=== PATIENT | female | born 1985 ===

== ENCOUNTER 2017-05-19 15:25 | Inpatient (IN) | payer MEDICAID, OTHER ==
[2017-05-19] MEDS ORDERED: Sodium Citrate/Citric Acid 15 ml Sol PO ONE ×2 (15:53→16:15)
[2017-05-19] MEDS ORDERED: cefOXitin IV 2 gm in Dextrose 2 GM/50 ML BAG IVPB ONE (15:53)
[2017-05-19] MEDS: Lactated Ringer's 1,000 ML IV SCH ×2 (16:05→17:05)
[2017-05-19 16:37] LABS: BASO % 0.5 % (0.0-2.0); EOS # 0.1 K/uL (0.0-0.7); EOS % 0.8 % (0.0-4.0); HEMATOCRIT 35.9 % (34.0-47.0); LYMPH # 1.4 K/uL (1.0-4.3); MEAN CELL VOLUME 82.8 fL (81.0-99.0); MEAN CORPUSCULAR HEMOGLOBIN 28.1 pg (27.0-31.0); MEAN CORPUSCULAR HGB CONC 33.9 g/dL (33.0-37.0); MEAN PLATELET VOLUME 10.8 fL (7.2-11.7); MONO # 0.6 K/uL (0.0-0.8); MONO % 8.3 % (0.0-10.0); NRBC % 0.1 % (0.0-2.0); RED CELL DISTRIBUTION WIDTH 14.6 % (11.5-14.5); WHITE BLOOD COUNT 7.4 K/uL (4.8-10.8)
[2017-05-19 16:39] LABS: RBC URINE < 1 /hpf (0-3); URINE BILIRUBIN NEGATIVE (NEGATIVE); URINE BLOOD NEGATIVE (NEGATIVE); URINE COLOR Straw (YELLOW); URINE GLUCOSE (UA) NORMAL (Normal); URINE KETONE NEGATIVE (NEGATIVE); URINE LEUKOCYTE ESTERASE NEG Leu/uL (Negative); URINE PROTEIN NEGATIVE (NEGATIVE); URINE UROBILINOGEN NORMAL mg/dL (0.2-1.0); WBC URINE < 1 /hpf (0-5)
[2017-05-19 16:44] LABS: CHLORIDE 105 mmol/L (98-107)
[2017-05-19 16:45] LABS: POTASSIUM 3.8 mmol/L (3.6-5.2); SODIUM 136 mmol/L (132-148)
[2017-05-19 16:48] LABS: ALB/GLOB RATIO 1.1 (1.0-2.1); ALKALINE PHOSPHATASE 143 U/L (38-126); ALT/SGPT 24 U/L (9-52); AST/SGOT 18 U/L (14-36); BILIRUBIN,TOTAL 0.4 mg/dL (0.2-1.3); BLOOD UREA NITROGEN 7 mg/dL (7-17); CARBON DIOXIDE 23 mmol/L (22-30); GFR AFRICAN-AMERICAN > 60; GLUCOSE,RANDOM 75 mg/dL (65-105); TOTAL PROTEIN 6.8 g/dL (6.3-8.3)
[2017-05-19 16:49] LABS: CALCIUM 9.2 mg/dl (8.6-10.4)
[2017-05-19] MEDS ORDERED: methylPREDNISolone 60 MG in Sodium Chloride 0.9% 100 ML IVPB ONE (17:06)
--- NOTE | 2017-05-19 17:09 | OBHP ---
Datetime: 05/19/2017 16:15 IP Adm Impression: Term, intrauterine ; No Active Labor IP Chief Complaint Other: thrombocyotpenia/ previous sec IP Admit Plan: Admit to unit; Initiate Section protocol Admit Comment, IP Provider: CC: Oligohydramnios send by [facility] for repeat c/s HPI: Patient is a 32 years old at [id number] by LMP and 38w 2days by ultrasound (05/19/17). E DD by LMP (07/30/2016) is 05/06/2017 and COREY by first trimester is 05/31/2017. Patient presents to the L_D from the clinic due to oligohydramnios ( EDUARDO: 5.1cm) observed on ultrasound for a repeat C-sectio n. Patient endorses + movement but denies contraction, vaginal bleeding, leakage of fluids. 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 Pmhx: denies Pshx: X2 FHx: denies Medications: PNV Allergies: NKDA Social Hx: Lives with boyfriend and two daughters. 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 Denies tobacco, E DEVON and illicit drugs use P.E: See above A/P: 32 yo at 38w2d by ultrasound presented for a repeat due to oligohydramnios ( A FI: 5.1cm) approved by [facility] Dr Mandel 1. Admission to L _ D for repeat and btl with oligohyraminos/thromboctoenia. Local Company Hazmat Driver called Dr Palathingal.ptl 75. orederd funcal count. order 60 mg solumedrol and 1 unit platelets before c/s. belt knife feeder will come. npo/ivf labs type and cross cont carissa and efm Dr Mandel called and left a voicemail. possible section in am Pelvic Type - PN: Adequate Extremities - PN: Normal Abdomen - PN: Normal Back - PN: Normal Breast - PN: Not Done Lungs - PN: Normal Heart - PN: Normal Thyroid - PN: Not Done Neurologic - PN: Normal HEENT - PN: Normal General - PN: Normal FHR - Baseline A Provider: 130 Contraction Comments Provider: occ Comments, ACOG Physical Exam: Gen: NAD, AAOX3 Cardio: RRR, normal S1, S2 Lung: CTA bilaterally Abdomen: Gravid, fundal height at 41cm Extremties: No edema, no cyanosis or clubbing IP Hx Assessment: The History has been Reviewed and is Current Vital Signs Provider: Reviewed; Within Normal Limits IP Indication for Induction: Oligohydramnios NICHD Variability Prov Fetus A: Moderate 6-25bpm NICHD Accel Fetus A IP Provider: 15X15 FHR Category Provider Fetus A: Category I Genitourinary Exam: Normal DTRs - PN: Normal
--- NOTE | 2017-05-19 17:49 | CP.PCM.CON ---
History of Present Illness - History of Present Illness History of Present Illness: 32 yo woman with third child, currently admitted for her third elective . The patient has two prior pregnancies, uncomplicated C-sections. She was found to be mildly thrombocytopenic, during her second trimester, with a platelet count of around 100k. She was seen in the office in April with a platelet count of 80K. She did not notice any unusual bleeding or excessive bruising. Work up done so far show a normal B12, Negative MEETA, Hepatitis and HIV tests are normal. Testing for VonWillebrand profile is also normal with normal coagulation tests. Meds Allergies/Adverse Reactions: Allergies Allergy/AdvReac Type Severity Reaction Status Date / Time No Known Allergies Allergy Verified 05/19/17 15:53 - Medications Medications: Current Medications Lactated Ringer's (Lactated Ringer's) 1,000 mls @ 1,000 mls/hr IV .Q1H SHIRA Stop: 05/19/17 17:59 Results - Labs Result Diagrams: 05/19/17 16:28 05/19/17 16:28 Labs: Laboratory Results - last 24 hr 05/19/17 05/19/17 05/19/17 16:28 16:28 16:28 WBC 7.4 RBC 4.33 Hgb 12.2 Hct 35.9 MCV 82.8 D MCH 28.1 MCHC 33.9 RDW 14.6 H Plt Count 75 L D Manual Plt Count 78 L MPV 10.8 Neut % (Auto) 71.4 Lymph % (Auto) 19.0 L [place] % (Auto) 8.3 Eos % (Auto) 0.8 Baso % (Auto) 0.5 Neut # 5.3 Lymph # 1.4 [place]lands # 0.6 Eos # 0.1 Baso # 0.0 PT INR APTT Sodium Potassium Chloride Carbon Dioxide Anion Gap BUN Creatinine Est GFR ( Amer) Est GFR (Non-Af Amer) Random Glucose Calcium Total Bilirubin AST ALT Alkaline Phosphatase Total Protein Albumin Globulin Albumin/Globulin Ratio Urine Color Straw Urine Clarity Clear Urine pH 6.0 Ur Specific [place] 1.003 Urine Protein Negative Urine Glucose (UA) Normal Urine Ketones Negative Urine Blood Negative Urine Nitrate Negative Urine Bilirubin Negative Urine Urobilinogen Normal Ur Leukocyte Esterase Neg Urine WBC (Auto) < 1 Urine RBC (Auto) < 1 Ur Squamous Epith Cells 2 RPR HIV 1&2 Antibody Screen 05/19/17 05/19/17 05/19/17 16:28 16:28 16:28 WBC RBC Hgb Hct MCV MCH MCHC RDW Plt Count Manual Plt Count MPV Neut % (Auto) Lymph % (Auto) [place] % (Auto) Eos % (Auto) Baso % (Auto) Neut # Lymph # [place] # Eos # Baso # PT 10.8 INR 1.0 APTT 31 Sodium 136 Potassium 3.8 Chloride 105 Carbon Dioxide 23 Anion Gap 12 BUN 7 Creatinine 0.4 L Est GFR ( Amer) > 60 Est GFR (Non-Af Amer) > 60 Random Glucose 75 Calcium 9.2 Total Bilirubin 0.4 AST 18 ALT 24 Alkaline Phosphatase 143 H Total Protein 6.8 Albumin 3.6 Globulin 3.2 Albumin/Globulin Ratio 1.1 Urine Color Urine Clarity Urine pH Ur Specific Mary [place] Urine Protein Urine Glucose (UA) Urine Ketones Urine Blood Urine Nitrate Urine Bilirubin Urine Urobilinogen Ur Leukocyte Esterase Urine WBC (Auto) Urine RBC (Auto) Ur Squamous Epith Cells RPR Nonreactive HIV 1&2 Antibody Screen 05/19/17 16:28 WBC RBC Hgb Hct MCV MCH MCHC RDW Plt Count Manual Plt Count MPV Neut % (Auto) Lymph % (Auto) [place] % (Auto) Eos % (Auto) Baso % (Auto) Neut # Lymph # [place] # Eos # Baso # PT INR APTT Sodium Potassium Chloride Carbon Dioxide Anion Gap BUN Creatinine Est GFR ( Amer) Est GFR (Non-Af Amer) Random Glucose Calcium Total Bilirubin AST ALT Alkaline Phosphatase Total Protein Albumin Globulin Albumin/Globulin Ratio Urine Color Urine Clarity Urine pH Ur Specific [place] Urine Protein Urine Glucose (UA) Urine Ketones Urine Blood Urine Nitrate Urine Bilirubin Urine Urobilinogen Ur Leukocyte Esterase Urine WBC (Auto) Urine RBC (Auto) Ur Squamous Epith Cells RPR HIV 1&2 Antibody Screen Negative Assessment & Plan (1) Thrombocytopenia affecting Assessment and Plan: Mild thrombocytopenia, work up so far normal/ negative for bleeding disorder, nutritional or autoimmune disease, negative for HIV and hepatitis, normal LFTs and BP. Above most likely secondary to gestational decrease versus chronic ITP like picture, less likely. Because this is patient's third , and because of anticipated adhesions , there might be higher than ususual risk of bleeding. Recommend 1 unit pheresis platelets under cover of steroids prior to , transfuse early AM tomorrow. Status: Acute
--- NOTE | 2017-05-19 18:32 | OBPN ---
Datetime: 05/19/2017 18:27 Contraction Comments Provider: irrg FHR - Baseline A Provider: 140 IP Progress Note Comment: dr wilkins hematolgy came to see the pateint. recommed platlet transusio n and solumedrol x 1 before c/s. plt coming from [place]. plan liquid deit platlet transusion at 6 am . repeat cbc at 7 am npo after midnight dr malone called left a vocemail pt understand and agrees Vital Signs Provider: Reviewed; Within Normal Limits NICHD Accel Fetus A IP Provider: 15X15 FHR Category Provider Fetus A: Category I NICHD Variability Prov Fetus A: Moderate 6-25bpm Dilatation, Provider: 0 Effacement, Provider: 0 Station, Provider: -3 NICHD Decel Fetus A IP Provider: None
[2017-05-19 18:40] LABS: PLT BASE COUNT 71 K/uL
[2017-05-19 18:41] LABS: FUNCTIONING PLTS 65 K/uL; PLT(ADP) 6 K/uL
[2017-05-19] MEDS ORDERED: Nalbuphine 20 mg/ml Inj (1 ml) IVP PRN (19:45)
[2017-05-19] MEDS ORDERED: Nalbuphine 20 mg/ml Inj (1 ml) ONE (19:53)
[2017-05-20 09:07] LABS: FUNCTIONING PLTS 63 K/uL; PLT BASE COUNT 78 K/uL; PLT(ADP) 15 K/uL
[2017-05-20] MEDS ORDERED: Sodium Citrate/Citric Acid 15 ml Sol ONE (10:10)
[2017-05-20] MEDS ORDERED: cefOXitin IV 2 gm in Dextrose 2 GM/50 ML BAG IVPB ONE (10:10)
[2017-05-20] MEDS ORDERED: Oxytocin 10 Units/ml Inj ONE ×2 (10:10→15:52)
--- NOTE | 2017-05-20 13:21 | OBPN ---
Datetime: 05/20/2017 09:26 IP Progress Plan: Deliver- Section Contraction Comments Provider: irregular FHR - Baseline A Provider: 145 Gestation - Est Wks by US: 39w 3d IP Progress Note Comment: Patient seen and evaluated at approximately 0914 hours: received in LDR#1, presetn. (+) AFM; denies LOF, VB: 9=0 occ lower abdominal pressure Surgical consent obtained, desire for permanent sterilization was re-affirmed. Assessment: 32 y.o. P2, 39w 3d, previous C/S x 2, gestational thrombocytopenia, low EDUARDO of 5.1 cm 05/19/17 for elective repeat C/S and BTL. Patient has received 1 unit platelets; repeat CBC at 0830 h ours noted for manual platelet count 81K and functional assay of 62K. Patient consented for C/Sectio n after extensive discussion of potential risks and complications; and inclusive of discussion of pos siblility of extensive resuscitation in case of general anesthesia administration. Patient expressed an understanding and offers no other questions or concerns. Consents signed, dated, witness ed and placed in chart. Category 1 tracing. Patient is clinically stable. Plan: 1) house calls nurse to O.R. 2) Order another unit of platelet Vital Signs Provider: Reviewed; Within Normal Limits NICHD Accel Fetus A IP Provider: 15X15 FHR Category Provider Fetus A: Category I NICHD Variability Prov Fetus A: Moderate 6-25bpm NICHD Decel Fetus A IP Provider: None
[2017-05-20] MEDS ORDERED: ePHEDrine 50 mg/ml Inj ONE (13:35)
[2017-05-20] MEDS ORDERED: Succinylcholine Chloride 20 mg/ml Syr (5 ml) IV ONE (13:35)
[2017-05-20] MEDS ORDERED: Propofol 10 mg/ml Inj (20 ML) ONE (13:35)
[2017-05-20] MEDS ORDERED: Oxytocin 20 units in LR 2,000 ML IV ONE (13:58)
[2017-05-20] MEDS ORDERED: Morphine 4 MG/ML VIAL ONE ×2 (16:40→17:26)
[2017-05-20] MEDS ORDERED: DiphenhydrAMINE 50 mg/ml Inj IVP PRN (17:02)
--- NOTE | 2017-05-20 17:05 | PCM.SURG1 ---
Surgeon's Initial Post Op Note - Surgeon's Notes Surgeon: Meche Rodriguez MD Guide Cruise: Vinayak Villagran MD; 2nd Guide Cruise: Babak Mansfield MS-3 Type of Anesthesia: General Endo Anesthesia Administered By: Rufino Connolly MD Pre-Operative Diagnosis: 39 weeks 2 days. Previous section. Gestational thrombocytopenia. Multiparity, desiring permanent sterilization Operative Findings: Live male infant, BRIJESH position, weight 7lb 5oz, 's 9/9 ; cord pH 7.27. Normal uterus; normal fallopian tubes and ovaries, bilaterally Post-Operative Diagnosis: Same Operation Performed: Repeat transverse lower uterine segment section. Modified Erma procedure Specimen/Specimens Removed: Portions of right and left fallopian tubes Estimated Blood Loss: EBL {In ML}: 600 (U.O. 400 mL; IVFs 2,000 mL) Blood Products Given: Platlets (290 mL) Drains Used: No Drains Date of Surgery/Procedure: 05/20/17 Time of Surgery/Procedure: 17:00
[2017-05-20] MEDS ORDERED: Morphine 4 MG/ML VIAL IV ONE (17:24)
[2017-05-20] MEDS ORDERED: Morphine Monoject Barrel PCA 1mg/ml IV PRN (17:45)
[2017-05-20] MEDS ORDERED: Rocuronium 10 mg/ml (5 ml) ONE (18:10)
--- NOTE | 2017-05-20 22:58 | OBDS ---
DELIVERY PERSONNEL Delivery Doctor: Aminah Rodriguez MD Scrub Nurse: Hayley Landin OBT Button And Buckle Maker: Darlyn Rodriguez RN Anesthesiologist: MATERNAL INFORMATION Delivery Anesthesia: General Medications in Delivery: pitocin Estimated Blood Loss (ml): 800 Placenta Cultured: Yes Maternal Complications: None Provider Comments: Uncomplicated repeat LTCS with atraumatic delivery of live male infant, BRIJESH posit ion, 's 9/9 under general anesthesia. Uncomplicated bialteral tubal ligation performed without i ncident. Mother exubated; transferred to in stable condition; to nursery, also in stable c ondition LABOR SUMMARY EDC: 05/24/2017 00:00 No. Babies in Womb: 1 Attempted: No Labor Anesthesia: IV Sedation LABOR INFORMATION Reason for Induction: Not Applicable Oxytocin: N/A Group B Beta Strep: Positive (Annotations: 05/05/17) Antibiotics # of Doses: 1 Steroids Given: None Reason Steroids Not Administered: Not Applicable MEMBRANES Membranes Rupture Method: Artificial Rupture of Membranes: 05/20/2017 15:58 Length of Rupture (hrs): 0.00 Amniotic Fluid Color: Clear Amniotic Fluid Amount: Moderate Amniotic Fluid Odor: Normal STAGES OF LABOR Stage 3 hrs: 0 Stage 3 min: 1 CSECTION DELIVERY Primary Indication: Repeat Elective Other Primary Indication: low robbie CSection Urgency: Elective CSection Incidence: Repeat Labor: N/A Elective: Elective CSection Incision: Lower Uterine Transverse Sterilization Procedure: Erma Uterine Closure: Double-layer closure BABY A INFORMATION Infant Delivery Date/Time: 05/20/2017 15:58 Method of Delivery: Born in Route : No : N/A Forceps: N/A Vacuum Extraction: N/A Shoulder Dystocia : No SHOULDER DYSTOCIA BABY A Delivery Date/Time: 05/20/2017 15:58 PRESENTATION/POSITION BABY A Presentation: Cephalic Cephalic Presentation: N/A Vertex Position: Left Occipital Anterior Breech Presentation: N/A PLACENTA INFORMATION BABY A Placenta Delivery Time : 05/20/2017 15:59 Placenta Method of Delivery: Manual Removal Placenta Status: Delivered SCORES BABY A Heart Rate 1 min: >100 bpm Resp Effort 1 min: Good Cry Reflex Irritability 1 min: Cough or Sneeze or Pulls Away Muscle Tone 1 min: Active Motion Color 1 min: Body [place], Extremities Blue Resuscitation Effort 1 min: Tactile Stimulation; Oxygen SCORE 1 MIN: 9 Heart Rate 5 min: >100 bpm Resp Effort 5 min: Good Cry Reflex Irritability 5 min: Cough or Sneeze or Pulls Away Muscle Tone 5 min: Active Motion Color 5 min: Body [place], Extremities Blue Resuscitation Effort 5 min: N/A SCORE 5 MIN: 9 INFANT INFORMATION BABY A Gestational Age at Delivery: 39.2 Gestational Status: Term Infant Outcome : Liveborn Infant Condition : Stable Sex: Male IDENTIFICATION/MEDS BABY A ID Band Number: [id number] ID Band Location: Left Leg; Left Arm Sensor Applied: Yes Sensor Number: [id number] Sensor Location : Cord Clamp Vitamin K Given : Not Given Erythromycin Given: Not Given WEIGHT/LENGTH BABY A Infant Birthweight (gms): 3325 Weight (lb): 7 Infant Weight (oz): 5 Infant Length Inches: 19.00 Length cms: 48.3 CORD INFORMATION BABY A No. Cord Vessels: 3 Nuchal Cord : N/A Cord Blood Taken: Yes Suction: Mouth; Nose ASSESSMENT BABY A Infant Complications: None Physical Findings at Delivery: Within Normal Limits Respirations: Appears Normal Digital Content Coordinator/ALS Called : No Care By: Fredi Menjivar RN Transferred To: Nursery
--- NOTE | 2017-05-21 04:28 | OP ---
PROCEDURE DATE: 05/20/2017 SURGEON: Meche Rodriguez MD JUNIOR SYSTEMS ENGINEER: Vinayak Villagran MD SECOND CONSULTANT ELECTRONICS: Babak Mansfield MS-3. TYPE OF ANESTHESIA: General with endotracheal intubation. ANESTHESIOLOGIST: Rufino Connolly MD PREOPERATIVE DIAGNOSES: A 39 weeks' 2 days' gestation, previous Caesarean section with gestational thrombocytopenia; multiparity, and desiring permanent sterilization. POSTOPERATIVE DIAGNOSES: A 39 weeks' 2 days' gestation, previous Caesarean section with gestational thrombocytopenia; multiparity, and desiring permanent sterilization. OPERATIONS PERFORMED: Repeat transverse lower uterine segment Caesarean section and modified [place] procedure. OPERATIVE FINDINGS: Live male from the left occiput anterior position, weight 7 pounds 5 ounces, 's 9 and 9 at one and five minutes respectively. Cord pH was 7.27. Normal uterus and normal fallopian tubes and ovaries bilaterally. ESTIMATED BLOOD LOSS: 600 mL. URINE OUTPUT: 400 mL. INTRAVENOUS FLUIDS: 2000 mL. BLOOD PRODUCTS GIVEN: Platelets at a total volume of 290 mL. DRAINS: None. COMPLICATIONS: None. DESCRIPTION OF PROCEDURE: The patient was taken to the operating room after having obtained informed consent for the anticipated procedure. This included a discussion of possible risks and complications including, but not limited to infection requiring antibiotics, hemorrhage, requiring blood transfusion, repair of any damage to internal organs, possible Caesarean hysterectomy. Consents were dated, signed, witnessed, and placed in the patient's chart. The patient had had a Guillory indwelling catheter inserted under sterile condition and Mefoxin 2 g were given preoperatively. The patient was then escorted to the operating room. She was placed on the operating room table and then repositioned to the supine position. General anesthesia with endotracheal intubation was then administered without incident. Using the first scalpel, incision was made through the previous scar. The incision was carried down through the subcutaneous tissue using the scalpel. The fascia was identified. It was nicked in the midline and via blunt dissection, the abdominal cavity was entered. The vesicouterine reflection was identified, however, the bladder flap was not created. A transverse incision was made on the lower uterine segment. A small amount of clear amniotic fluid was retrieved and atraumatic delivery of the infant with the findings as above ensued. Once on the operative field, the 's mouth and nose were bulb suctioned as the umbilical cord was doubly clamped and cut. The was then handed off the operative field to the engineering and operations director in attendance. A segment of the umbilical cord was obtained for cord pH analysis. The placenta was delivered via manually; it was grossly intact with 3 vessels present in the cord. The uterus was then exteriorized for closure. This was done in 2 layers using 1-0 Vicryl in a running fashion in the first layer and horizontal imbricating fashion on the second layer. Adequate hemostasis was assured. Attention was then directed to the posterior aspect of the uterus, findings as above. Then, attention was directed to the right fallopian tube. In the mid-isthmic portion, the mesosalpinx was grasped with a Vivian clamp and a knuckle was created using 0 plain catgut x 2 ties. The intervening mesosalpinx was pierced with the Metzenbaum scissors; the segment was excised and submitted to pathology for further confirmation. Hemostasis was assured. A similar procedure was performed on the left fallopian tube. Copious irrigation was then performed. The uterus was returned to the abdominal cavity. The paracolic gutters were cleared of all debris after assuring adequate hemostasis. The peritoneum was reapproximated using 2-0 chromic in a running fashion. The muscles were reapproximated using 2-0 chromic in a running fashion. The fascia was reapproximated using 0-Vicryl in a running fashion in two halves. The subcutaneous tissue was reapproximated using 0 plain gut in a running fashion and the skin was reapproximated using surgical clips. The patient was then repositioned in a frog leg and bimanual examination was performed. The uterus was expressed of all remaining clots and debris. It was noted to be contracted and firm, at the level of the umbilicus. A pressure dressing was applied. The patient was successfully extubated and she was transferred to the recovery room in stable condition. The has been transferred to the [facility] in stable condition. Dr. Villagran was present throughout the entire procedure from beginning to end. His surgical expertise was necessary for: 1. Adequate visualization of the operative strickland at all times. 2. The safe and atraumatic delivery of the infant as described above. 3. Assuring adequate hemostasis throughout the procedure. Meche MD [facility] # [id number] BECKY
[2017-05-21 07:55] LABS: BASO # 0.1 K/uL (0.0-0.2); BASO % 0.6 % (0.0-2.0); HEMATOCRIT 30.4 % (34.0-47.0); LYMPH # 1.1 K/uL (1.0-4.3); LYMPH % 11.4 % (20.0-40.0); MEAN CELL VOLUME 82.5 fL (81.0-99.0); MEAN CORPUSCULAR HEMOGLOBIN 27.9 pg (27.0-31.0); MEAN CORPUSCULAR HGB CONC 33.8 g/dL (33.0-37.0); MEAN PLATELET VOLUME 9.8 fL (7.2-11.7); MONO # 0.8 K/uL (0.0-0.8); MONO % 8.4 % (0.0-10.0); RED CELL DISTRIBUTION WIDTH 14.3 % (11.5-14.5); WHITE BLOOD COUNT 9.9 K/uL (4.8-10.8)
--- NOTE | 2017-05-21 08:59 | OBPPN ---
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
[2017-05-21] MEDS: Simethicone 80 mg Chewtab PO SCH ×4 (10:24→22:25)
[2017-05-21] MEDS: Oxycodone/Acetaminophen 5/325 mg Tab PO PRN ×2 (15:19→22:24)
[2017-05-22] MEDS: Oxycodone/Acetaminophen 5/325 mg Tab PO PRN ×3 (08:24→18:53)
[2017-05-22] MEDS: Simethicone 80 mg Chewtab PO SCH ×4 (10:21→21:16)
[2017-05-23 08:26] VITALS: PULSE 78; RESP 18; TEMP 97.4; O2SAT 98
[2017-05-23] MEDS: Simethicone 80 mg Chewtab PO SCH ×2 (09:52→14:35)
--- NOTE | 2017-05-23 15:21 | OBPPN ---
Datetime: 05/23/2017 12:05 PP Pain Prov: Within normal limits PP Nausea Prov: Denies PP Flatus Prov: Yes PP BM Prov: Yes PP Abdomen/Uterus Prov: Normal PP Lochia Prov: Normal PP Extremities Prov: Normal PP C/S Incision Prov: Normal PP Comments Phys Exam Prov: fudus below umblicus ext no edema,no calf ten incision clean and dry PP Progress Note Prov: Patient seen and examined at bedside. As per nursing, there were no acute eulalio nts overnight. Patient reports that she is doing well and pain is controlled. Patient is ambulating, tolerating diet, passing flatues and urinating without difficulty. Very mild lochia. Patient denies h eadaches, dizziness, cp, palpitations, sob, urinary symptoms and BM. Breast feeding and bottle feedin g Vital Sign: BP:125/82, HR: 78, Temp: 97.4 Gen: AAOx3, NAD Cardio: RRR, Normal S1, S2 Pulm: CTA bilaterally Abd: soft, appropriately tender, fundus firm below umbilicus, incision is clean, dry and intact wi th emilio in place Ext: no clubbing, cyanosis, edema; no calf tenderness Labs: 7.4>12.2/35.9<75 9.9>10.3/30.4<101 O positive Rubella immune A/P: 32 yo at 39w3d s/p repeat lower transverse uterine with BTL POD#3 1. Stable, afebrile 2. Pain is well controlled- percocet as prescribed and motrin prn 3. Thrombocytopenia - s/p 2 units of platelets 4. Encourage ambulation and hydration 5. Encourage breast feeding 6. Continue routine post care 7. Continue vitamins and iron supplement 8. Discharge today: Follow-up with your clinic ( [facility]) by Wednesday (05/26/17) or (05/27/17) for surgical emilio removal, pelvic rest for 6 weeks, no heavy lifting for 6 weeks 9. Plan discussd with attending Kathy Fang DO, PGY-1 attending note agrees with above Vital Signs Provider PP: Reviewed; Within Normal Limits Datetime: 05/22/2017 09:46 PP Impression Prov: Normal progression PP Plan Prov: Continue present management
[2017-05-23 22:47] VITALS: BP 125/82
== END 2017-05-23 18:00 | disposition home or self-care (01) | DRG 370 ==
LOC: C.EROB 15:25 → C.4D 15:53 → C.4M 05-20 19:30
PROVIDERS: ADMIT Obstetrics & Gynecology; ATTEND Obstetrics & Gynecology
PROC: 10D00Z1 Extraction of Products of Conception, Low, Open Approach (ICD-10-PCS; principal; 2017-05-20)
PROC: 0UL70ZZ Occlusion of Bilateral Fallopian Tubes, Open Approach (ICD-10-PCS; 2017-05-20)
PROC: 30233R1 Transfusion of Nonautologous Platelets into Peripheral Vein, Percutaneous Approach (ICD-10-PCS; 2017-05-21)
DX: O99.12 Other diseases of the blood and blood-forming organs and certain disorders involving the immune mechanism complicating childbirth (principal); D69.6 Thrombocytopenia, unspecified; O41.03X0 Oligohydramnios, third trimester, not applicable or unspecified; O34.219 Maternal care for unspecified type scar from previous cesarean delivery; Z3A.38 38 weeks gestation of pregnancy; Z37.0 Single live birth; Z30.2 Encounter for sterilization